=== PATIENT | female | born 1950 | race Caucasian/White ===

== ENCOUNTER → 2017-01-21 | Outpatient (CLI) | payer MEDICARE, BC ==
[2015-07-03 09:33] VITALS: BP 175/88
[~2017-01-21] MED LIST: DONE5TAB14 PO; OMEP20CA9 PO; OXYB5TAB7 PO; TIZA4TAB PO; TRAM50TA PO
--- NOTE | 2017-01-21 15:02 | KCIC ---
EXAM: MRI thoracic spine without contrast. HISTORY: Back pain. Compression fractures. TECHNIQUE: MRI of the thoracic spine was performed without intravenous contrast. COMPARISON: None. FINDINGS: There is a minimal lower thoracic dextrocurvature. There is a moderate superior endplate compression fracture at T5. Another moderate to severe inferior endplate compression fractures seen at T7. These demonstrate residual marrow edema and/or acute to subacute. There is no significant retropulsion or malalignment. A moderate superior endplate compression fracture at T12 appears to be status post vertebroplasty. There is mild retropulsion of the superior endplate with only mild effacement of the thecal sac. There is a moderate posterior disc-osteophyte complex at C6-7 without clear stenosis. There is no central canal stenosis throughout the thoracic spine. There is no significant neural foraminal stenosis throughout. There is no abnormal cord signal. There is mild mid thoracic degenerative disc disease. There is grade 1 anterolisthesis at L4-5. Degenerative disc disease is moderate to severe from L4 through S1. Limited images of the cervical spine reveal moderate degenerative disc disease from C5 through C7. IMPRESSION: 1. Moderate compression deformities at T5 and T7 are acute to subacute. No significant retropulsion or malalignment. 2. Moderate chronic T12 compression deformity status post vertebroplasty. 3. Cervical and lumbar degenerative changes as above. Electronically signed by: Ivet Dunbar MD (01/21/2017 2:58 PM) [id number]
--- NOTE | 2017-01-21 16:25 | KCIC ---
Thyroid ultrasound History: Right thyroid lesion. Comparison: None. Findings: Right thyroid lobe measures 4.9 cm in length by 2.3 cm in AP dimension by 2.4 cm in transverse dimension. Right thyroid lobe demonstrates a complex cystic and solid nodule which measures 3.1 x 1.9 x 1.9 cm. Nodule demonstrates vascularity. Left thyroid lobe measures 4.0 cm in length by 1.4 cm in AP dimension by 1.8 cm in transverse dimension. Left thyroid lobe demonstrates in the midportion a hypoechoic nodule which measures 0.6 cm in maximum dimension. The inferior left thyroid lobe demonstrates mildly complex primarily solid nodule which measures 1.3 x 0.8 x 1.1 cm; this nodule demonstrates vascularity. Isthmus measures 2 mm in thickness. Impression: 1. Dominant complex cystic and solid nodule seen in the right thyroid lobe measuring 3.1 cm in maximum dimension. This would be amenable to ultrasound-guided fine-needle aspiration. 2. Smaller left thyroid nodules. Electronically signed by: Patrick Carr MD (01/21/2017 4:22 PM) [place] [id number]
== END | disposition home or self-care (01) ==
LOC: KCIC US 11:57
PROVIDERS: ATTEND Physician Assistant Medical
DX: M48.54XA Collapsed vertebra, not elsewhere classified, thoracic region, initial encounter for fracture (principal); E04.2 Nontoxic multinodular goiter
CPT/HCPCS: 72146; 76536

== ENCOUNTER 2017-01-29 07:09 | Outpatient (CLI) | payer MEDICARE, BC ==
[2017-01-29] VITALS (9 sets, daily range): BP systolic 110–148; BP diastolic 69–80
[~2017-01-29] VITALS: Ht 165.1 cm; Wt 102.1 kg
[2017-01-29] MEDS ORDERED: LIDO30CR TP (07:28)
[2017-01-29] MEDS ORDERED: DICL100G18 TP (07:28)
[2017-01-29 07:39] LABS: BASO # 0.1 x10^3/uL (0.0-0.2); BASO % 1 % (0-3); EOS % 2 % (0-3); HEMATOCRIT 44.3 % (36.0-47.0); LYMPH % 38 % (24-48); MEAN CORPUSCULAR HEMOGLOBIN 30 pg (25-35); MEAN CORPUSCULAR HGB CONC 34 g/dL (31-37); MEAN CORPUSCULAR VOLUME 87 fL (79-100); MONO % 7 % (0-9); NEUT % 53 % (31-73); PLATELET COUNT 297 x10^3/uL (140-400); RED BLOOD COUNT 5.07 x10^6/uL (3.50-5.40); RED CELL DISTRIBUTION WIDTH 14.1 % (11.5-14.5)
[2017-01-29 07:49] LABS: INR 0.9 (0.8-1.1)
[2017-01-29] MEDS ORDERED: LIDOCAINE 1% / SOD BICARB 8.4% 20 ML VIAL. IJ ONE ×2 (07:56→09:00)
[2017-01-29] MEDS ORDERED: fentaNYL PF VIAL 250 MCG/5 ML VIAL ONE (08:22)
[2017-01-29] MEDS ORDERED: MIDAZOLAM HCL/PF 5 MG/5 ML VIAL. ONE (08:22)
[2017-01-29] MEDS ORDERED: CLINDAMYCIN 600MG PREMIX 50 ML IV ONE ×2 (08:23→09:00)
[2017-01-29] MEDS ORDERED: fentaNYL PF VIAL 250 MCG/5 ML VIAL IV ONE (09:00)
[2017-01-29] MEDS ORDERED: MIDAZOLAM HCL/PF 5 MG/5 ML VIAL. IV ONE (09:00)
--- NOTE | 2017-01-29 16:15 | RAD ---
Vertebroplasty at the T5 and T7 levels 01/29/2017 Indication: Osteoporotic/pathologic T5 and T7 compression fractures with persistent pain despite conservative management. Acute edema also noted on recent MRI exam of the thoracic spine. Discussion: The risks and benefits of the procedure including but not limited to cement extravasation, embolization, neurological injury, bleeding, infection were discussed patient. Informed consent was obtained. The patient was brought to fluoroscopy suite placed in the prone position. A timeout procedure was performed. The upper back was prepped and draped using maximum sterile barrier technique. The T7 pedicles were identified under biplane fluoroscopy. An 11-gauge guiding needle was advanced to the posterior third of the T7 vertebral body using a unipedicular approach. A curved cement delivery needle was advanced to the mid vertebral body. The T5 vertebral body was identified under biplane fluoroscopy. An 11-gauge guiding needle was advanced to the posterior third of the T5 vertebral body using a unipedicular approach. A curved cement delivery needle was advanced to the mid vertebral body. Under careful biplane fluoroscopic guidance methylmethacrylate cement was instilled into the T5 and T7 vertebral bodies. A small amount of cement extrusion into the T4-T5 disc space is noted. Small amount of cement extrusion into the T7-T8 disc space also seen. No other cement extrusion was identified. The delivery needles and trocar needles were removed. Manual pressure was held to achieve hemostasis. Sterile dressing was applied. No immediate complications were identified. Fluoroscopy time: 27 minutes. Dose area product: 43 Gycm2 Impression: Successful T5 and T7 vertebroplasty
== END 2017-01-29 12:12 | disposition home or self-care (01) ==
LOC: INTRAD 07:09
PROVIDERS: ATTEND Neurological Surgery
DX: M80.88XA Other osteoporosis with current pathological fracture, vertebra(e), initial encounter for fracture (principal); Z79.01 Long term (current) use of anticoagulants; E66.9 Obesity, unspecified; Z68.44 Body mass index [BMI] 60.0-69.9, adult; K21.9 Gastro-esophageal reflux disease without esophagitis; M19.90 Unspecified osteoarthritis, unspecified site; Z86.69 Personal history of other diseases of the nervous system and sense organs; Z87.39 Personal history of other diseases of the musculoskeletal system and connective tissue; Z90.710 Acquired absence of both cervix and uterus; Z90.49 Acquired absence of other specified parts of digestive tract; Z88.3 Allergy status to other anti-infective agents; Z88.0 Allergy status to penicillin; Z91.048 Other nonmedicinal substance allergy status
CPT/HCPCS: 22510; 22512; 36415; 85027; 85610; 99152; 99153; C1758; C1887; J2250; J3010; J3490

== ENCOUNTER → 2017-02-11 | Outpatient (CLI) | payer MEDICARE ==
[2017-01-29 11:40] VITALS: BP 141/80
[~2017-02-11] VITALS: Ht 165.1 cm; Wt 102.5 kg
[~2017-02-11] MED LIST changes: +DICL100G18 TP; +LIDO30CR TP
--- NOTE | 2017-02-12 08:46 | RAD ---
ULTRASOUND-GUIDED FINE NEEDLE ASPIRATION 02/11/2017 Clinical Indication: RT THYROID NODULE Comparison: Thyroid ultrasound 01/21/2017. Technique: The risks, benefits, and alternatives of the procedure are discussed with the patient. Written informed consent is obtained. Skin site is prepped and draped in normal sterile fashion. 1% lidocaine is used for superficial and deep local anesthesia extending to the thyroid nodule. 3 separate passes were made with a 25-gauge needle. Subsequently, a single biopsy with a Rotex device into the thyroid nodule. The patient tolerated the procedure well. There was no immediate complication. Patient remained in the department for one hour post procedure and left the department in stable condition. Findings: Redemonstration of right thyroid nodule. IMPRESSION: Ultrasound guided fine needle aspiration of a right thyroid nodule.
--- NOTE | 2017-02-15 16:18 | PATHOLOGY ---
CYTOPATHOLOGY REPORT CLINICAL HISTORY: Right thyroid nodule SPECIMEN(S) RECEIVED: A.Fine needle aspiration,Right thyroid FINAL DIAGNOSIS: Fine needle aspiration, right thyroid: - Bethel category: Benign - Few groups of thyroid follicular cells are present predominantly a macrofollicular architecture with rare microfollicles admixed with many scattered macrophages. (see comment) COMMENT: The findings are consistent with a cystic follicular lesion, favor an adenomatoid nodule in multinodular hyperplasia. Diagnostic features of papillary carcinoma are not seen. The material aspirated may not be technical support representative. Suggest radiological and clinical correlation, and follow-up as clinically indicated. (SHA:mgr; 02/15/2017) PATHOLOGIST: Roland Hawley M.D. REPORT ELECTRONICALLY SIGNED BY: Roland Hawley M.D. DATE/TIME: 02/15/2017 16:17 GROSS PATHOLOGY: A. Fine needle aspiration,Right thyroid: The specimen is labeled "Seble Romero" and consists of two H and E slides, two fixed slides, two air dried slides. Thirty mL of clear red fluid in fixative from the needle rinse is also submitted and one ThinPrep slide was prepared from this material. One RNA retain vial has been received. (mm 02.12.2017) CARPET INSPECTOR FINISHED(S): CAL Ledezma(ASCP) INITIAL CPT CODE(S): A; 38276 Professional services performed by [facility], [address] [place] [id number]. Technical services performed by [facility], [address] [place] [address], [address], [place] [address]. Dr. Neff, [facility] Radiology, fax [phone] PATIENT: SEBLE ROMERO /AGE: 1105/20/1950 (Age: 66) SEX: F PATIENT #: [id number] ALT CASE #: SPECIMEN COLLECTION DATE: 02/11/2017 SPECIMEN RECEIVED DATE: 02/12/2017 [facility] [address] [facility] [facility], [address] [place] [address] PHONE: [phone] DIRECTOR: Dominik Almonte M.D. * * * END OF REPORT * * *
== END | disposition home or self-care (01) ==
LOC: US 11:53
PROVIDERS: ATTEND Surgery
DX: E04.1 Nontoxic single thyroid nodule (principal)
CPT/HCPCS: 60300; 76942

== ENCOUNTER → 2018-05-02 | Outpatient (CLI) | payer MEDICARE ==
[2017-01-29 11:40] VITALS: BP 141/80
--- NOTE | 2018-05-02 10:15 | KCIC ---
MRI Thoracic Spine without contrast History: Thoracic pain, middle to low back pain, history of compression fractures and vertebroplasty Technique: Multiplanar, multi sequential noncontrast MR imaging was performed of the thoracic spine. Contrast: None Comparison: January 21, 2017 Findings: There are again old compression fractures of T5, T7, T12, interval vertebroplasty at T5 and T7. There is no evidence of acute compression fracture of the thoracic spine. There is similar mild osseous retropulsion of the superior aspect of T12, unchanged. Thoracic cord caliber is within normal limits without focal signal abnormality. There is no new significant thoracic spinal stenosis. There is again very shallow posterior protrusion at T7-8. Facet degenerative change contributes to moderate to severe narrowing of the posterior left T10-T11 neural foramen as seen previously. There is again moderate degenerative disc disease T6-7 and T7-8, minimally at other levels. As seen on the localizer, there is grade 1 anterior spondylolisthesis L4-5. There is degenerative disc disease of lumbar spine greatest at L5-S1 and to a lesser degree at L4-5. There is a stable T2 hyperintense lesion of the right lobe of the liver about 1.5 cm. There is 0.8 cm T2 hyperintense lesion left kidney. Impression: 1. There are old compression fractures of T12, T7, T5, no evidence of acute thoracic spine fracture. 2. There is again moderate to severe narrowing of the left T10-11 neural foramen by facet. 3. There is stable T2 hyperintense lesion of the right lobe of the liver, also small likely cyst of the left kidney. Electronically signed by: Isaac Collins MD (05/02/2018 10:11 AM) [id number]
== END | disposition home or self-care (01) ==
LOC: KCIC MRI 08:04
PROVIDERS: ATTEND Physician Assistant Medical
DX: M48.54XD Collapsed vertebra, not elsewhere classified, thoracic region, subsequent encounter for fracture with routine healing (principal); M48.04 Spinal stenosis, thoracic region; K76.89 Other specified diseases of liver; M51.34 Other intervertebral disc degeneration, thoracic region; M43.16 Spondylolisthesis, lumbar region; N28.89 Other specified disorders of kidney and ureter
CPT/HCPCS: 72146